=== PATIENT | female | born 2005 | race Two or more races ===

== ENCOUNTER 2024-05-14 17:30 | Emergency (ER) | payer OTHER ==
[~2024-05-14] VITALS: Ht 167.6 cm; Wt 54.4 kg
[2024-05-14] MEDS ORDERED: LIDOCAINE HCL 1% 10ML VIAL IJ STA (18:33)
[2024-05-14] MEDS ORDERED: CEFTRIAXONE SODIUM 1,000 MG VIAL IM STA (18:41)
[2024-05-14] MEDS ORDERED: TETANUS & DIPHTHERIA TOX,ADULT 0.5 ML VIAL IM STA (18:46)
[2024-05-14] MEDS ORDERED: CEFTRIAXONE SODIUM 2,000 MG VIAL ONE (19:19)
[2024-05-14] MEDS ORDERED: TETANUS DIPHTHERIA TOX. ADSOR 5 ML VIAL IM ONE (19:19)
== END 2024-05-14 21:36 | disposition home or self-care (01) ==
LOC: ER 17:32 → EMR PED 17:32
DX: S81.811A Laceration without foreign body, right lower leg, initial encounter (principal); X58.XXXA Exposure to other specified factors, initial encounter; Y93.89 Activity, other specified; Y92.89 Other specified places as the place of occurrence of the external cause; Y99.9 Unspecified external cause status

== ENCOUNTER 2024-05-22 20:01 | Emergency (ER) | payer OTHER ==
[~2024-05-22] VITALS: Ht 167.6 cm; Wt 65.8 kg
== END 2024-05-22 21:04 | disposition home or self-care (01) ==
LOC: ER 20:04 → EMR PED 20:09 → ER 20:09 → EMR PED 21:04
DX: Z48.02 Encounter for removal of sutures (principal); T14.8XXA Other injury of unspecified body region, initial encounter

== ENCOUNTER 2024-05-27 13:46 | Emergency (ER) | payer OTHER ==
[~2024-05-27] VITALS: Ht 167.6 cm; Wt 65.8 kg
[2024-05-27] MEDS ORDERED: CEFTRIAXONE SODIUM 1,000 MG VIAL IM STA (15:06)
[2024-05-27] MEDS ORDERED: LIDOCAINE HCL 1% 10ML VIAL ONE (15:24)
[2024-05-27] MEDS ORDERED: CEFTRIAXONE SODIUM 1,000 MG VIAL ONE (15:24)
== END 2024-05-27 16:20 | disposition home or self-care (01) ==
LOC: ER 13:48 → EMR PED 14:04 → ER 14:04 → EMR PED 16:20
DX: Z48.02 Encounter for removal of sutures (principal)